=== PATIENT | female | born 1960 | race Caucasian/White ===

== ENCOUNTER 2017-03-21 19:37 | Observation (INO) | payer BC, OTHER ==
[~2017-03-21 19:37] MED LIST: ISOVUE-370 76%-LOCM 1 ML ONE
[2017-03-21 20:08] LABS: #Basophils 0.1 thou/uL (0.0-0.2); #Eosinphils 0.2 thou/uL (0.0-0.7); #Lymphocytes 2.1 thou/uL (1.20-3.40); #Monocytes 0.5 thou/uL (0.11-0.59); #Neutrophils 7.5 thou/uL (1.40-6.50); %Basophils 0.6 % (0.0-1.0); %Eosinophils 1.8 % (0.0-10.0); %Lymphocytes 20.6 % (21.0-51.0); %Monocytes 4.9 % (0.0-10.0); Hematocrit 46.3 % (36.0-47.0); Mean Platelet Volume 7.5 fL (7.4-10.4); Red Blood Cell (RBC) Count 4.94 mill/uL (4.20-5.40); White Blood Cell (WBC) Count 10.4 thou/uL (4.8-10.8)
[2017-03-21 20:33] LABS: ALT (SGPT) 30 U/L (8-55); AST (SGOT) 24 U/L (5-34); Alkaline Phosphatase 89 U/L (40-150); Anion Gap 16 mmol/L (10-20); BUN (Urea Nitrogen) 12 mg/dL (9.8-20.1); Bilirubin, Total 0.6 mg/dL (0.2-1.2); CK (CPK) 210 U/L (29-168); Calc. Creatinine Clearance 0 mL/min (70-130); Calcium 10.4 mg/dL (7.8-10.44); Carbon Dioxide 26 mmol/L (22-29); Chloride 101 mmol/L (98-107); Estimated GFR-MDRD 60; Globulin 3.1 g/dL (2.4-3.5); Protein, Total 7.9 g/dL (6.0-8.3)
[2017-03-21 20:38] LABS: Troponin I Less than 0.010 ng/mL (< 0.028)
[2017-03-21] MEDS ORDERED: Lorazepam 2 MG/ML VIAL ONE (20:43)
[2017-03-21] MEDS ORDERED: Dexamethasone 4 mg/ml Vial ONE (20:44)
[2017-03-21] MEDS ORDERED: Ondansetron HCl/PF 4 MG/2 ML Vial ONE (20:44)
[2017-03-21] MEDS ORDERED: Meclizine HCl 25 MG TAB ONE (20:44)
[2017-03-21] MEDS ORDERED: Nitroglycerin 2% Ointment 1 INCH/1 GM Packet ONE (21:10)
[2017-03-21 21:36] LABS: PTT 31.3 SEC (22.9-36.1); Prothrombin Time 12.5 SEC (12.0-14.7)
--- NOTE | 2017-03-21 21:57 | RAD ---
SINGLE VIEW OF THE CHEST: 03/21/17 COMPARISON: 11/17/15 HISTORY: Chest pain with weakness and shortness of breath. FINDINGS: Single view of the chest shows a normal sized cardiomediastinal silhouette. There is no evidence of consolidation, mass, or pleural effusion. The bones are unremarkable. IMPRESSION: No evidence of acute cardiopulmonary disease. POS: [facility]
--- NOTE | 2017-03-21 23:16 | CT ---
CT OF THE BRAIN WITHOUT CONTRAST 03/21/17 COMPARISON: None. HISTORY: Vertigo with nausea for the past three days. Left upper quadrant abdominal pain. TECHNIQUE: Multiple contiguous axial images were obtained in a CT of the brain without contrast. FINDINGS: The brain is normal in morphology and attenuation without focal lesions or confluent areas of infarc tion. There is no evidence of hydrocephalus, intracranial hemorrhage or extra-axial fluid collection . The paranasal sinuses are well aerated. There is hyperdense material in the left cheek which may rep resent bone formation of radiopaque material. There appears to be a metallic bolt in the left cylinder batcher ior calvarium. IMPRESSION: No evidence of acute intracranial abnormality. POS: [facility]
--- NOTE | 2017-03-22 00:02 | CT ---
CTA OF THE CHEST AND ABDOMEN WITH CONTRAST: 03/21/17 COMPARISON: None. HISTORY: Left lower quadrant abdominal pain that is exacerbated with movement. Patient has vertigo and interm ittent nausea over the last three days. TECHNIQUE: Multiple contiguous axial images were obtained in a CTA of the chest and abdomen with contrast. 3D s agittal and coronal MIP reformats were performed. FINDINGS: No pulmonary nodules are identified. No pneumothorax or pleural effusion are seen. The heart normal in size. The aorta is normal in caliber without evidence of aneurysmal dilatation or focal dissectio n. This includes the thoracic and abdominal aorta. The liver, gallbladder, left kidney, adrenal glands, spleen and pancreas are unremarkable. There kandice ears to be scarring in the lower pole of the right kidney. The visualized large and small bowel are unremarkable. No abdominal adenopathy is seen. The osseous structures are unremarkable. The abdominal wall soft tissues are unremarkable. There is a well circumscribed 1.3 cm mass-like appearance in the left breast. IMPRESSION: 1. No evidence of aortic dissection or aneurysmal dilatation. 2. Left breast mass-like density. Recommend correlation with patient's mammogram history and if one has not been performed, then an elective outpatient diagnostic mammogram should be performed. POS: [facility]
[2017-03-22] MEDS ORDERED: ADENOSINE 60 MG/20 ML VIAL ONE ×2 (00:57→16:57)
[2017-03-22] MEDS ORDERED: Acetaminophen 500 MG TAB ONE (00:59)
[2017-03-22] MEDS ORDERED: Acetaminophen 325 MG TAB PO PRN ×2 (01:20→02:09)
[2017-03-22] MEDS ORDERED: Sodium Chloride 0.9% 1,000 ML IV SCH (01:20)
[2017-03-22] MEDS ORDERED: Ondansetron ODT 4 MG TAB SL PRN (01:20)
[2017-03-22] MEDS ORDERED: Ondansetron HCl/PF 4 MG/2 ML Vial IVP PRN ×2 (01:20→02:09)
[2017-03-22] MEDS ORDERED: Meclizine HCl 25 MG TAB PO PRN (01:21)
[2017-03-22 01:33] LABS: Troponin I Less than 0.010 ng/mL (< 0.028)
[2017-03-22] MEDS ORDERED: Promethazine HCl 25 MG/ML VIAL IM/IV PRN (02:09)
[2017-03-22] MEDS ORDERED: Ibuprofen 200 MG TAB PO PRN (02:09)
[2017-03-22] MEDS ORDERED: Morphine Sulfate 2 MG/ML SYRINGE SLOW IVP PRN (02:09)
[2017-03-22] MEDS ORDERED: Nitroglycerin 0.4 MG TAB (25 Tab Bottle) PO PRN (02:09)
[2017-03-22] MEDS: Sodium Chloride 0.9% 1,000 ML IV SCH ×2 (02:27→15:41)
[2017-03-22 02:43] VITALS: BMI 28.8
[2017-03-22 04:44] LABS: #Lymphocytes 0.9 thou/uL (1.20-3.40); #Monocytes 0.1 thou/uL (0.11-0.59); %Eosinophils 0.3 % (0.0-10.0); %Lymphocytes 17.9 % (21.0-51.0); %Monocytes 1.6 % (0.0-10.0); Hematocrit 41.8 % (36.0-47.0); Mean Platelet Volume 7.6 fL (7.4-10.4); Red Blood Cell (RBC) Count 4.47 mill/uL (4.20-5.40)
--- NOTE | 2017-03-22 04:51 | PDOC.EVN ---
Event Note - Event Note Event Note: 4.45am. Patient apparently refused to sign consent/have lumbar puncture done to r/o meningitis per RN.
[2017-03-22 05:02] LABS: Anion Gap 13 mmol/L (10-20); BUN (Urea Nitrogen) 12 mg/dL (9.8-20.1); Calc. Creatinine Clearance 80 mL/min (70-130); Calcium 9.5 mg/dL (7.8-10.44); Carbon Dioxide 21 mmol/L (22-29); Chloride 107 mmol/L (98-107); Cholesterol 283 mg/dl (< 200 Desired); Estimated GFR-MDRD 68; LDL Cholesterol, Calculated 200 mg/dL
[2017-03-22 05:08] LABS: Troponin I Less than 0.010 ng/mL (< 0.028)
--- NOTE | 2017-03-22 06:44 | HP ---
REASON FOR ADMISSION: Intractable nausea, vomiting, headache, uncontrolled hypertension, chest pain. HISTORY OF PRESENT ILLNESS: The patient gives history of feeling nauseated from Sunday. She has also had headache which is all over. She has had some neck pain as well. Three weeks back, patient has had a steroid shot placed for her lumbar spine by Dr. Pirce who is a automobile painter here in [facility]. She was also taken off Lyrica from 1 week. She has had left chest pressure beneath her breast yesterday evening, which lasted for a few minutes. Her blood pressure normally runs usually around 90/50s. When she checked her pressure at home it was 188/112, but she was nauseous at the same time. No complaints of fever. The patient has had some diaphoresis with profuse sweating during episodes of her nausea. No complaints of back or lower extremity pains. No prior stress test. PAST MEDICAL AND SURGICAL HISTORY: History of hypothyroidism, dyslipidemia, chronic back pain, sinus surgery, has had facial surgeries, liposuction, C- section. CURRENT MEDICATIONS: None. ALLERGIES: To SULFA. PERSONAL HISTORY: Does not abuse alcohol or drugs. No history of smoking. Lives with her . FAMILY HISTORY: Mom in her 80s from dementia. Father at the age of 62 years. He has had history of cirrhosis. REVIEW OF SYSTEMS: The following complete review of systems was negative, unless otherwise mentioned in the HPI or below: Constitutional: Weight loss or gain, ability to conduct usual activities. Skin: Rash, itching. Eyes: Double vision, pain. ENT/Mouth: Nose bleeding, neck stiffness, pain, tenderness. Cardiovascular: Palpitations, dyspnea on exertion, orthopnea. Respiratory: Shortness of breath, wheezing, cough, hemoptysis, fever or night sweats. Gastrointestinal: Poor appetite, abdominal pain, heartburn, nausea, vomiting, constipation, or diarrhea. Genitourinary: Urgency, frequency, dysuria, nocturia. Musculoskeletal: Pain, swelling. Neurologic/Psychiatric: Anxiety, depression. Allergy/Immunologic: Skin rash, bleeding tendency. PHYSICAL EXAMINATION: GENERAL: The patient is a 57-year-old female who is currently not in any acute distress. VITAL SIGNS: Blood pressure 148/86, pulse 70 per minute, respiratory rate 18 per minute, temperature 97.8 degrees Fahrenheit, saturating 99% on room air. NECK: Supple, no elevated JVD. EYES: Extraocular muscles intact. Pupils reacting to light. Oral cavity, mucous membranes are moist. No exudates or congestion. CARDIOVASCULAR: S1, S2 heard. Regular rhythm. RESPIRATORY: Air entry 2+ bilateral. No rales or rhonchi. ABDOMEN: Soft, bowel sounds heard. No tenderness, rigidity or guarding. EXTREMITIES: No peripheral edema or calf tenderness. VASCULAR SYSTEM: Peripheral pulses 2+ bilateral, no ischemic ulcerations or gangrene. CENTRAL NERVOUS SYSTEM: No gross focal deficits seen. Patient is alert, awake , oriented x3. PSYCHIATRIC SYSTEM: The patient's mood is euthymic. No hallucinations or delusions. LABORATORY AND X-RAY FINDINGS: Troponin x2 is negative. BUN 12, creatinine 0.9 , glucose 107. Liver enzymes within normal limits. Lipase is 4. BNP 37, H and H 15 and 46, platelet count 286. EKG done shows normal sinus rhythm at [address] brain done shows no evidence of acute intracranial abnormalities. CT angiogram of chest and abdomen shows no evidence of aortic dissection. There is a 1.3 cm mass-like appearance in the left breast. CLINICAL IMPRESSION AND PLAN: The patient will be under observation on telemetry for atypical chest pain with severe intractable nausea, vomiting, and headache. In view of patient having steroid shot in her lumbar spine 3 weeks back, we will obtain a lumbar puncture to rule out meningitis. Clinically, patient has no signs of Kernig's or Brudzinski's/signs of meningeal irritation. We will also obtain a nuclear stress test. We will place her on a small dose of Lopressor. Her mild hypertension is due to nausea and vomiting. We will also place her on a small dose of Lyrica, which she has been off. We will follow ACS evidence based protocol as well. Patient has chronic left breast cyst and does yearly mammograms through her primary care physician. We will continue to closely monitor her for any hemodynamic compromise. ANUPAMD
[2017-03-22 07:10] LABS: Free T3 2.02 pg/mL (1.71-3.71)
[2017-03-22 07:54] VITALS: TEMP 97.9
[2017-03-22] MEDS ORDERED: Docusate 100 MG CAP PO SCH (09:00)
[2017-03-22] MEDS ORDERED: Famotidine 20 MG TAB PO SCH (09:00)
[2017-03-22] MEDS ORDERED: Aspirin 325 mg Enteric Coated Tablet PO SCH (09:00)
[2017-03-22] MEDS ORDERED: Enoxaparin Sodium 40 MG/0.4 ML SYRINGE SC SCH (09:00)
[2017-03-22] MEDS ORDERED: Pregabalin 50 MG CAP PO SCH (09:00)
[2017-03-22] MEDS ORDERED: Metoprolol Tartrate 25 MG TAB PO SCH (09:00)
[2017-03-22] MEDS ORDERED: Aspirin 325 MG TAB PO SCH (09:00)
[2017-03-22 11:42] VITALS: BP 96/57
--- NOTE | 2017-03-22 13:47 | PDOC.PN ---
- Subjective Encounter Start Date: 03/22/17 Encounter Start Time: 13:45 Subjective: feels much better. no more N/V.no AP/diarrhea -: some headache but no vision changes - Objective Resuscitation Status: Resuscitation Status FULL:Full Resuscitation MAR Reviewed: Yes Vital Signs & Weight: Vital Signs (12 hours) Temp Pulse Resp BP BP Pulse Ox 03/22/17 10:44 74 96/57 L 03/22/17 09:00 97.9 F 91 16 03/22/17 07:53 97.9 F 91 16 85/51 L 94 L 03/22/17 04:20 98.5 F 93 16 91/52 L 95 Weight Weight 157 lb 9.6 oz I&O: 03/21/17 03/22/17 03/23/17 06:59 06:59 06:59 Intake Total 700 Output Total 400 Balance 300 Result Diagrams: 03/22/17 04:25 03/22/17 04:25 Additional Labs: Laboratory Tests 03/21/17 03/21/17 03/22/17 20:00 20:00 01:00 Troponin I Less than 0.010 Less than 0.010 B-Natriuretic Peptide 37.5 Cholesterol Free T4 Free T3 TSH 3rd Generation 03/22/17 03/22/17 03/22/17 04:25 04:25 04:25 Troponin I Less than 0.010 B-Natriuretic Peptide Cholesterol 283 H Free T4 0.92 Free T3 2.02 TSH 3rd Generation 0.6144 Phys Exam - Physical Examination Constitutional: NAD HEENT: PERRLA, moist MMs, sclera anicteric, oral pharynx no lesions, 2+ tonsils Neck: no nodes, no JVD, supple, full ROM Respiratory: no wheezing, no rales, no rhonchi, clear to auscultation bilateral Cardiovascular: RRR, no significant murmur, no rub, gallop Gastrointestinal: soft, non-tender, no distention, positive bowel sounds Musculoskeletal: no edema, pulses present Neurological: non-focal, normal sensation, moves all 4 limbs Psychiatric: normal affect, A&O x 3 Skin: no rash Dx/Plan (1) HTN (hypertension) with goal to be determined Code(s): I10 - ESSENTIAL (PRIMARY) HYPERTENSION Status: Acute (2) Intractable nausea and vomiting Code(s): R11.2 - NAUSEA WITH VOMITING, UNSPECIFIED Status: Acute (3) Hypothyroid Code(s): E03.9 - HYPOTHYROIDISM, UNSPECIFIED Status: Chronic (4) HLD (hyperlipidemia) Code(s): E78.5 - HYPERLIPIDEMIA, UNSPECIFIED Status: Chronic - Plan plan discussed w/ family, DVT proph w/SCDs awaiting stress test results. BP controlled. DC Nitro patch -: low suspicion clinically for meningitis.Pt refused LP as well -: Cardiac enzymes negative X3.hemodynamically stable * . Review of Systems - Review of Systems Constitutional: negative: Fever, Chills, Sweats, Weakness, Malaise, Other Respiratory: negative: Cough, Dry, Shortness of Breath, Hemoptysis, SOB with Excertion, Pleuritic Pain, Sputum, Wheezing Cardiovascular: negative: Chest Pain, Palpitations, Orthopnea, Paroxysmal Noc. Dyspnea, Edema, Light Headedness, Other Gastrointestinal: negative: Nausea, Vomiting, Abdominal Pain, Diarrhea, Constipation, Melena, Hematochezia, Other Genitourinary: negative: Dysuria, Frequency, Incontinence, Hematuria, Retention , Other Musculoskeletal: negative: Neck Pain, Shoulder Pain, Arm Pain, Back Pain, Hand Pain, Leg Pain, Foot Pain, Other Neurological: negative: Weakness, Numbness, Incoordination, Change in Speech, Confusion, Seizures, Other - Medications/Allergies Allergies/Adverse Reactions: Allergies Allergy/AdvReac Type Severity Reaction Status Date / Time Sulfa (Sulfonamide Allergy Unknown Verified 03/22/17 01:44 Antibiotics) Medications: Current Medications Acetaminophen (Tylenol) 650 mg PO Q4H PRN PRN Reason: Headache/Fever or Pain Last Admin: 03/22/17 10:07 Dose: 650 mg Aspirin (Aspirin) 325 mg PO DAILY [facility] Last Admin: 03/22/17 10:09 Dose: 325 mg Docusate Sodium (Colace) 100 mg PO BID [facility] Last Admin: 03/22/17 10:08 Dose: 100 mg Enoxaparin Sodium (Lovenox) 40 mg SC 09 [facility] Last Admin: 03/22/17 10:13 Dose: 40 mg Famotidine (Pepcid) 20 mg PO BID [facility] Last Admin: 03/22/17 10:08 Dose: 20 mg Sodium Chloride (Normal Saline 0.9%) 1,000 mls @ 100 mls/hr IV .Q10H [facility] Last Admin: 03/22/17 02:27 Dose: Not Given Ibuprofen (Motrin) 400 mg PO Q6H PRN PRN Reason: Pain Last Admin: 03/22/17 11:59 Dose: 400 mg Morphine Sulfate (Morphine Sulfate) 2 mg SLOW IVP Q4H PRN PRN Reason: Chest Pain/BP Elevations Nitroglycerin (Nitrostat) 0.4 mg PO Q5MIN PRN PRN Reason: Chest Pain Ondansetron HCl (Zofran) 4 mg IVP Q6H PRN PRN Reason: Nausea/Vomiting Pregabalin (Lyrica) 50 mg PO BID [facility] Last Admin: 03/22/17 10:08 Dose: 50 mg Promethazine HCl (Phenergan) 25 mg IM/IV Q6H PRN PRN Reason: Nausea/Vomiting
--- NOTE | 2017-03-22 18:45 | NM ---
CARDIAC SPECT: 03/22/17 HISTORY: 57-year-old female with chest pain, hypertension, dyslipidemia. TECHNIQUE: A stress only myocardial perfusion scan was performed following the intravenous administration of 32 millicuries of technetium 99m Sestamibi. Pharmacologic stress with Adenosine was monitored and inte rpreted by Dr. Kya Richter. FINDINGS: Homogeneous tracer distribution is seen in the myocardial segments on the post stress images. GATED SPECT LVEF: 59%. WALL MOTION EXAM: Normal. IMPRESSION: Normal post stress myocardial perfusion scan. POS: [facility]
--- NOTE | 2017-03-23 14:48 | DIS ---
DATE OF ADMISSION: 03/21/2017 DATE OF DISCHARGE: 03/22/2017 CONDITION AT THE TIME OF DISCHARGE: Stable and improved. DISCHARGE DIAGNOSES: 1. Atypical chest pain, acute coronary syndromes, ruled out. 2. Uncontrolled hypertension, resolved. 3. Intractable nausea and vomiting, resolved. 4. Hypothyroidism. 5. Hyperlipidemia. DISCHARGE MEDICATIONS: No new prescriptions were provided. The patient does not remember what home medications she takes, but was instructed to resume her home medications if she is on anything. PROCEDURES DONE IN THE HOSPITAL: Include; 1. CT scan of the brain, which is negative for any acute intracranial abnormality. 2. CT with aortic dissection protocol, which is negative for any dissection or aneurysmal dilatatio n. She has a chronic left breast mass-like density. 3. Nuclear medicine stress test, which is negative for any fixed or reversible defect. EF calculat ed at 59%. PRIMARY CARE PHYSICIAN: Nydia Uribe MD ADMISSION HISTORY: Ms. Bright is a 57-year-old female who came into the emergency room [facility] complaints of headache and nausea for over a week's duration. She reported getting a lumbar spin al injection for pain management 3 weeks prior to arrival. She also complains of some chest pains. Her blood pressure upon presentation was 188/112 as per the patient. She was admitted with myriad of complaints for further evaluation. She actually did undergo a CT angio of the chest given chest pain and hypertension in the ER, which was negative for any aortic dissection. It did show the [facility] st mass opacity 1.3 cm for which she has been followed up with yearly mammograms and it is reportedl y benign. She was admitted under observation status for intractable nausea, vomiting, and headache and a lumbar puncture was ordered for her. Please see admission history and physical for further de tails. HOSPITAL COURSE: The patient refused a lumbar puncture and her symptoms improved spontaneously. He r blood pressure improved without any intervention and was back to her baseline of systolic. She was also underwent a nuclear medicine stress test for complaints of chest pain and hypertension which was negative for ACS. Serial cardiac enzymes were trended and were normal. BNP was normal. TSH, free T3 and T4 were checked and were unremarkable. She did have elevation of cholesterol at 28 3 for which she was counseled for dietary discretion. On the day of discharge, she was back to her baseline without any overt symptoms and was eager to go home. She was seen and examined prior to discharge. Please see hospitalist progress note from the date of discharge for further details. She will follow up with her primary care physician in 1-2 w eeks. She did have some complaints that her symptoms started when she was taken off Lyrica and I aldrich ve encouraged her to discuss this with her PCP.
== END 2017-03-22 18:52 | disposition home or self-care (01) ==
LOC: ERS 19:37 → 2SW 23:05
PROVIDERS: ADMIT Internal Medicine; ATTEND Internal Medicine
DX: R07.89 Other chest pain (principal); I10 Essential (primary) hypertension; R11.2 Nausea with vomiting, unspecified; E03.9 Hypothyroidism, unspecified; E78.5 Hyperlipidemia, unspecified; R92.8 Other abnormal and inconclusive findings on diagnostic imaging of breast; R61 Generalized hyperhidrosis; M54.9 Dorsalgia, unspecified; G89.29 Other chronic pain; Z88.2 Allergy status to sulfonamides; Z98.890 Other specified postprocedural states; Z81.8 Family history of other mental and behavioral disorders
CPT/HCPCS: 36415; 70450; 71010; 71275; 78452; 80048; 80053; 80061; 82553; 83690; 83880; 84439; 84443; 84481; 84484; 85025; 85610; 85730; 87040; 87086; 93005; 93017; 96361; 96372; 96374; 96375; A9500; G0378; J0153; J1100; J1650; J2060; J2405